=== PATIENT | male | born 1975 | race Caucasian/White ===

== ENCOUNTER 2018-12-06 18:33 | Emergency (ER) | payer SELFPAY ==
[2018-12-06] MEDS ORDERED: Ketorolac Tromethamine 30 MG/ML VIAL ONE (19:35)
== END 2018-12-06 19:45 | disposition home or self-care (01) ==
LOC: ERS 18:33
DX: M54.41 Lumbago with sciatica, right side (principal)
CPT/HCPCS: 96372; J1885